=== PATIENT | female | born 1970 | race Caucasian/White ===

== ENCOUNTER → 2019-07-05 17:14 | Outpatient (CLI) | payer BC, SELFPAY ==
--- NOTE | ~2019-07-05 | MM_ITS ---
EXAMINATION: MM screening [facility] BI w betsey HISTORY: Screening mammogram TECHNIQUE: Craniocaudal and mediolateral oblique 3-D tomosynthesis images were obtained and synthetic 2-D images were generated. CAD analysis was submitted and interpreted. COMPARISON: 11/19/2017, 11/08/2010, 02/26/2010 BREAST PARENCHYMAL COMPOSITION: There are scattered areas of fibroglandular density. FINDINGS: Asymmetry in the middle third of the outer right breast on the craniocaudal view is unchang ed since 2009, consistent with a benign finding. There is no evidence of suspicious mass, calcificati on, or architectural distortion to suggest malignancy in either breast. There has been no suspicious interval change. IMPRESSION: 1. No mammographic evidence of malignancy. 2. Recommend routine screening mammography in one year. BI-RADS Category 2: Benign finding(s). Reviewed, dictated and finalized at location A. ITURE MECHANIC
== END ==
PROVIDERS: Visit Provider Obstetrics & Gynecology
DX: Z12.31 Encounter for screening mammogram for malignant neoplasm of breast (principal)
CPT/HCPCS: 77063; 77067

== ENCOUNTER → 2020-07-25 10:53 | Outpatient (CLI) | payer BC, SELFPAY ==
--- NOTE | ~2020-07-25 | MM_ITS ---
EXAMINATION: MM screening [facility] BI w betsey HISTORY: Screening mammogram TECHNIQUE: Craniocaudal and mediolateral oblique 3-D tomosynthesis images were obtained and synthetic 2-D images were generated. CAD analysis was submitted and interpreted. COMPARISON: 07/05/2019, 11/19/2017 BREAST PARENCHYMAL COMPOSITION: There are scattered areas of fibroglandular density. FINDINGS: Asymmetry in the middle third of the outer right breast on the craniocaudal view has decrea sed in density since the comparison examination, consistent with a benign finding. There is no eviden ce of suspicious mass, calcification, or architectural distortion to suggest malignancy in either petra ast. There has been no suspicious interval change. IMPRESSION: 1. No mammographic evidence of malignancy. 2. Recommend routine screening mammography in one year. BI-RADS Category 2: Benign finding(s). Reviewed, dictated and finalized at location A. RIAL HANDLER
== END ==
PROVIDERS: Visit Provider Nurse Practitioner
DX: Z12.31 Encounter for screening mammogram for malignant neoplasm of breast (principal)
CPT/HCPCS: 77063; 77067

== ENCOUNTER 2021-08-09 17:00 | Outpatient (CLI) | payer BC, SELFPAY ==
--- NOTE | ~2021-08-09 | MM_ITS ---
EXAMINATION: MM screening [facility] BI w betsey HISTORY: Screening TECHNIQUE: Craniocaudal and mediolateral oblique 3-D tomosynthesis images were obtained and synthetic 2-D images were generated. CAD analysis was submitted and interpreted. COMPARISON: Comparison to multiple prior studies sequentially, with oldest reviewed study dated 11/19. BREAST PARENCHYMAL COMPOSITION: There are scattered areas of fibroglandular density. FINDINGS: There is no evidence of suspicious mass, calcification, or architectural distortion to sugg est malignancy in either breast. There has been no suspicious interval change. IMPRESSION: 1. No mammographic evidence of malignancy. 2. Recommend routine screening mammography in one year. BI-RADS Category 1: Negative Reviewed, dictated and finalized at location A. GRINDING MACHINE OPERATOR
== END 2021-08-09 17:01 | disposition home or self-care (01) ==
PROVIDERS: Visit Provider Nurse Practitioner
DX: Z12.31 Encounter for screening mammogram for malignant neoplasm of breast (principal)
CPT/HCPCS: 77063; 77067

== ENCOUNTER 2022-08-15 16:45 | Outpatient (CLI) | payer BC, SELFPAY ==
--- NOTE | ~2022-08-15 | MM_ITS ---
EXAMINATION: MM screening [facility] BI w betsey HISTORY: Screening mammogram TECHNIQUE: Craniocaudal and mediolateral oblique 3-D tomosynthesis images were obtained and synthetic 2-D images were generated. CAD analysis was submitted and interpreted. COMPARISON: 08/09/2021, 07/25/2020, 07/05/2019 by lateral screening mammogram examinations BREAST PARENCHYMAL COMPOSITION: There are scattered areas of fibroglandular density. FINDINGS: There is no evidence of suspicious mass, calcification, or architectural distortion to sugg est malignancy in either breast. There has been no suspicious interval change. IMPRESSION: 1. No mammographic evidence of malignancy. 2. Recommend routine screening mammography in one year. BI-RADS Category 1: Negative Reviewed, dictated and finalized at location A.
--- NOTE | ~2022-08-15 | DEXA_ITS ---
Bone Density Report Name: CHITO TURNER Age: 52 Sex: Female Ethnicity: White Date of : 1970 Indication: postmenopausal; screening for osteoporosis; hysterectomy; Referring Provider: MARLENI ABREU Study: Bone densitometry was performed. Exam Date: August 15, 2022 Accession number: [id number] Bone Density: Region BMD T-score Z-score Classification AP Spine(L1-L4) 1.048 0.0 0.9 Normal Femoral Neck (Left) 0.878 0.3 1.1 Normal Total Hip (Left) 1.273 2.7 3.3 Normal Femoral Neck (Right) 0.946 0.9 1.7 Normal Total Hip (Right) 1.212 2.2 2.8 Normal Total Hip Mean 1.242 2.5 3.1 Normal World Health Organization criteria for BMD impression classify patients as: Normal (T-score at or above -1.0), Osteopenia (T-score between -1.0 and -2.5), or Osteoporosis (T-score at or below -2.5). 10-year Fracture Risk: FRAX not reported because: All T-scores for Spine Total, Hip Total, Femoral Neck at or above -1.0 Clinical Information Provided by Patient: Has used the following medications: HRT (i.e. estrogen/hormone therapy) Has the following medical conditions: Hysterectomy Patient maximum height was 61.5 Menopause Age: 52 No regular weight bearing exercise Drinks caffeinated beverages Onset of menses at age 13 Number of children 2 Impression: The patient has normal bone mass. Discussion: BONE DENSITY IS ABOVE THE MINIMUM DESIRABLE LEVEL AT ALL SKELETAL SITES TESTED. This patient?s bone mineral density is above the minimum desirable level (T-score -1.0 or better) at all sites measured. The patient should follow a healthful lifestyle (good nutrition with adequate calcium and vitamin D, and appropriate weight-bearing exercise). Follow-Up: Consider repeating this study in 5 years or sooner if there is some new clinical indication. Reported by: ASHA on 08/15/2022 5:27:00 PM. Reviewed, dictated and finalized at location AMaci RODRIGES
== END 2022-08-15 16:46 | disposition home or self-care (01) ==
PROVIDERS: Visit Provider Obstetrics & Gynecology Gynecology
DX: Z12.31 Encounter for screening mammogram for malignant neoplasm of breast (principal); Z78.0 Asymptomatic menopausal state
CPT/HCPCS: 77063; 77067; 77080

== ENCOUNTER 2023-08-25 11:42 | Outpatient (CLI) | payer BC, SELFPAY ==
--- NOTE | ~2023-08-25 | MM_ITS ---
EXAMINATION: MM screening [facility] BI w betsey HISTORY: Screening mammogram TECHNIQUE: Craniocaudal and mediolateral oblique 3-D tomosynthesis images were obtained and synthetic 2-D images were generated. CAD analysis was submitted and interpreted. COMPARISON: 08/15/2022, 08/09/2021 bilateral screening mammogram examinations BREAST PARENCHYMAL COMPOSITION: The breasts are almost entirely fatty. FINDINGS: Suggestion of a 4 mm circumscribed mass in the upper outer right breast (MLO Tomosynthesis image 20/77). Diagnostic right mammogram and right breast ultrasound examination are recommended. No suspicious mass, architectural distortion, microcalcifications, skin thickening or retraction of e ither breast is noted otherwise. IMPRESSION: 1. Possible 4 mm mass, upper outer right breast 2. Diagnostic right mammogram and right breast ultrasound evaluation recommended BI-RADS Category 0: Incomplete: Needs additional imaging evaluation. Reviewed, dictated and finalized at location A. IMPRESSION: 1. Possible 4 mm mass, upper outer right breast 2. Diagnostic right mammogram and right breast ultrasound evaluation recommende d BI-RADS Category 0: Incomplete: Needs additional imaging evaluation.
== END 2023-08-25 11:43 ==
LOC: MICIMG 11:42
PROVIDERS: PCP Obstetrics & Gynecology Gynecology; Visit Provider Obstetrics & Gynecology Gynecology
DX: Z12.31 Encounter for screening mammogram for malignant neoplasm of breast (principal); R92.8 Other abnormal and inconclusive findings on diagnostic imaging of breast
CPT/HCPCS: 77063; 77067

== ENCOUNTER 2023-09-09 13:06 | Outpatient (CLI) | payer BC, SELFPAY ==
--- NOTE | ~2023-09-09 | MMUS_ITS ---
EXAMINATION: MM diagnostic [facility] RT w betsey, US breast RT limited HISTORY: Possible 4 mm mass, upper outer quadrant TECHNIQUE: Additional 3-D tomosynthesis images of the right breast were performed and synthetic 2-D i mages were generated. CAD analysis was submitted and interpreted. High resolution upper outer quadran t right breast ultrasound was performed. COMPARISON: August 25, 2023 bilateral screening mammogram FINDINGS: MAMMOGRAPHIC FINDINGS: No reproducible suspicious mass is evident. ULTRASOUND: 9:00 11 cm from nipple: 4.4 x 3 x 5.9 mm circumscribed hypoechoic lesion with suggestion of a radiolu cent hilus with vascularity, probably a small lymph node. IMPRESSION: 1. Probable benign finding 2. 6 month diagnostic right mammogram and right breast ultrasound follow-up are recommended BI-RADS category 3, probably benign findings. Reviewed, dictated and finalized at location A. IMPRESSION: 1. Probable benign finding 2. 6 month diagnostic right mammogram and right breast ultrasound follow-up are recommended BI-RADS category 3, probably benign findings.
== END 2023-09-09 13:07 | disposition home or self-care (01) ==
PROVIDERS: PCP Obstetrics & Gynecology Gynecology; Visit Provider Obstetrics & Gynecology Gynecology
DX: R92.8 Other abnormal and inconclusive findings on diagnostic imaging of breast (principal)
CPT/HCPCS: 76642; 77061; 77065; G0279